=== PATIENT | male | born 2005 | race Caucasian/White ===

== ENCOUNTER 2025-03-01 22:59 | Emergency (ER) | payer BC, SELFPAY ==
--- OUTSIDE RECORDS SUMMARY | 2025-03-01 23:04 | XMS_ITS | Patient Health Record ---
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 Role Phone Davon Davila [phone] Reason For Referral No Information Medications Medication SIG (Take, Route, Frequency, Duration) Notes Start Date End Date Status Benadryl Allergy 25 MG Capsule one capsule by mouth at bedtime Oral; Duration: 30 Benadryl Allergy 25mg Capsules one capsule by mouth at bedtime 03/26/2013 Active Pulmicort Flexhaler 180 MCG/ACT Aerosol Powder Breath Activated Inhale 1 puff(s) by mouth bid Inhalation; Duration: 30 Pulmicort Flexhaler 180mcg Inhalation Powder Inhale 1 puff(s) by mouth bid Quantity: 0 09/22/2013 Active Albuterol Sulfate (2.5 MG/3ML) 0.083% Nebulization Solution 1 vial(s) by nebulizer 3 to 4 x daily as directed for wheezing Inhalation; Duration: 30 Albuterol 0.083% Nebulizer Solution 1 vial(s) by nebulizer 3 to 4 x daily as directed for wheezing #120 (One [place] and Twenty) vial(s) 04/30/2013 Active Social History Social History Additional Details Category Social Info Options Details zzMigrated Social History Migrated Social History Advance Directive: Current and Verified Signed on 03/26/2013 Organ Donation: Patient refuses Organ Donation Accepted Portal User: User Name: [email or web address] Initial Password [email or web address] Problems Problem Type SNOMED Code ICD Code Onset Dates Problem Status W/U Status Risk Notes Problem Asthma (149327587) Asthma (493.00) 04/21/20 15 Active confirmed [id number]- Problem Asthma without status asthmaticus (98594632) Asthma, NOS (493.90) 03/26/20 13 Active confirmed [id number] 11- Problem Extrinsic asthma without status asthmaticus (29556373) Extrinsic asthma, unspecified (493.00) 09/22/19 14 Problem resolved confirmed [id number] 11- Problem Shortness of breath (406425831) Shortness of breath (786.05) 04/30/20 13 Problem resolved confirmed [id number]- Problem Chest pain (41192632) Chest pain (786.51) 02/22/20 14 Problem resolved confirmed [id number]- Problem History and physical examination, sports participation (869873832) Sports physical (V70.3) 03/26/20 13 Problem resolved confirmed [id number]- Plan Of Treatment No Information Medical (General) History Surgical History Surgery Date(Month/Year) Tonsillectomy/Adenoidectomy
[2025-03-01 23:08] VITALS: BP 149/87; PULSE 103; RESP 17; TEMP 36.1; O2SAT 99; BMI 27.2
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
[2025-03-02 00:55] VITALS: BP 132/85; PULSE 98; RESP 18; O2SAT 99
== END 2025-03-02 00:48 | disposition home or self-care (01) ==
PROVIDERS: Emergency Provider Physician Assistant
DX: S02.85XA Fracture of orbit, unspecified, initial encounter for closed fracture (principal); W22.8XXA Striking against or struck by other objects, initial encounter
CPT/HCPCS: 70486; 99284